=== PATIENT | male | born 1995 | race Caucasian/White ===

== ENCOUNTER 2019-05-02 14:38 | Emergency (ER) | payer MEDICAID ==
[~2019-05-02] VITALS: Ht 180.3 cm; Wt 94.5 kg
[2019-05-02 15:48] VITALS: BP 138/78
== END 2019-05-02 16:18 | disposition home or self-care (01) ==
LOC: EMS 14:39
DX: Z11.1 Encounter for screening for respiratory tuberculosis (principal); F17.210 Nicotine dependence, cigarettes, uncomplicated
CPT/HCPCS: 99406

== ENCOUNTER 2022-10-11 12:41 | Emergency (ER) | payer MEDICAID, OTHER ==
[~2022-10-11] VITALS: Ht 180.3 cm; Wt 70.0 kg
[2022-10-11 13:34] LABS: BASOPHILS % (AUTO) 0.4 % (0.0-2.0); EOSINOPHILS % (AUTO) 3.2 % (1.0-6.0); HEMATOCRIT 41.9 % (41-53); HEMOGLOBIN 13.8 g/dL (13.5-17.5); LYMPHOCYTES # (AUTO) 1.1 K/uL (1.0-4.8); LYMPHOCYTES % (AUTO) 16.7 % (22.0-44.0); MEAN CORPUSCULAR HEMOGLOBIN 29.7 pg (26.0-34.0); MEAN CORPUSCULAR HGB CONC 32.8 G/dL (31.0-37.0); MEAN CORPUSCULAR VOLUME 90 fL (80-100); MONOCYTES # (AUTO) 0.5 K/uL (0.1-1.0); MONOCYTES % (AUTO) 7.7 % (2.0-9.0); NEUTROPHILS # (AUTO) 4.8 K/uL (1.8-7.7); PLATELET COUNT (AUTO) 207 K/uL (150-450); RED BLOOD CELL COUNT(AUTO) 4.64 MIL/uL (4.50-5.90); RED CELL DISTRIBUTION WIDTH 14.5 % (11.5-14.5)
[2022-10-11 13:52] LABS: ANION GAP 5 mmol/L (8-16); CALCIUM, TOTAL 9.3 mg/dL (8.8-10.5); CARBON DIOXIDE 33 mmol/L (22-29); CHLORIDE 103 mmol/L (98-107); CREATININE 0.71 mg/dL (0.60-1.30); GLUCOSE,RANDOM 81 mg/dL (70-110); POTASSIUM 3.8 mmol/L (3.5-5.1); SODIUM SERUM 141 mmol/L (136-145); UREA NITROGEN, BLOOD 13 mg/dL (7-18)
[2022-10-11 13:53] LABS: GLOMERULAR FILTR. RATE CALC > 60 mL/min (>60)
[2022-10-11 14:07] LABS: ALANINE AMINOTRANSFERASE 16 U/L (12-78); ALKALINE PHOSPHATASE 62 U/L (46-116); ASPARTATE AMINOTRANSFERASE 16 U/L (15-37); BILIRUBIN,TOTAL 0.2 mg/dL (0.1-1.0); LIPASE 53 U/L (73-393); TOTAL PROTEIN, SERUM 7.4 g/dL (6.4-8.2)
[2022-10-11 14:26] VITALS: BP 133/81
== END 2022-10-11 14:35 | disposition home or self-care (01) ==
LOC: EMS 12:43
DX: F19.10 Other psychoactive substance abuse, uncomplicated (principal); F17.210 Nicotine dependence, cigarettes, uncomplicated; F15.90 Other stimulant use, unspecified, uncomplicated
CPT/HCPCS: 99283; 80053; 83690; 85025; 36415; G0480